=== PATIENT | female | born 1985 | race Two or more races ===

== ENCOUNTER 2019-01-16 08:27 | Emergency (ER) | payer OTHER ==
[~2019-01-16] VITALS: Ht 165.1 cm; Wt 54.4 kg
[2019-01-16] MEDS ORDERED: PRILOSEC10 MG (08:39)
== END 2019-01-16 20:03 | disposition home or self-care (01) ==
LOC: ER 08:27
DX: K52.89 Other specified noninfective gastroenteritis and colitis (principal); R10.2 Pelvic and perineal pain